=== PATIENT | female | born 1965 | race Caucasian/White ===

== ENCOUNTER 2017-06-21 12:00 | Day surgery (SDC) | payer BC ==
[~2017-06-21] VITALS: Ht 160 cm; Wt 62.6 kg
[~2017-06-21 12:00] MED LIST: AMBIEN5 MG PO; CYMBALTA60 MG PO; FLUTICASONE PRO16 GM NAS; IMITREX100 MG PO; NORCO 5-325 TA1 EACH PO; ROBAXIN-750750 MG PO
--- NOTE | 2017-06-21 14:19 | NUR ---
06/21/17 1419 Katy Velazquez REPORT FROM [facility].
--- NOTE | 2017-06-22 13:21 | OR ---
[facility] [address], [place] [address] Signed DATE OF OPERATION: 06/21/2017 SURGEON: Avelino Irby MD PREOPERATIVE DIAGNOSIS: Colon screening. POSTOPERATIVE DIAGNOSIS: Mild proctitis. PROCEDURE: Total colonoscopy to cecum with biopsy of rectum. ANESTHESIA: Intravenous sedation, propofol infusion. ANESTHESIOLOGIST: Elinor Richardson CRNA. INDICATION: This 51-year-old white woman, is a patient of Dr. John Ortiz here for colon screening. She has never had colonoscopy in the past. She is not currently having bleeding, diarrhea, or constipation. She understands the risks of bleeding, infection, perforation related to colonoscopy and wished to proceed. FINDINGS: The prep was adequate. Complete colonoscopy was undertaken to the cecum without question. There was mild proctitis, but no evidence of other abnormality, specifically no polyps, diverticula formation, colitis, or cancer. DESCRIPTION OF PROCEDURE: The patient was brought to the endoscopy suite and placed in lateral decubitus position and given intravenous sedation by the piano player with propofol infusional technique using full cardiopulmonary monitoring. Digital rectal examination was found to be normal. An Olympus video colonoscope was passed in the rectum and manipulated throughout the colon ultimately intubating the cecum. Irrigation was undertaken in the cecum and right colonic areas. The scope was then withdrawn from the cecum and examination throughout showed no sign of abnormality until the rectum, where there was mild inflammatory change, though not much and probably bowel prep related mostly. This area was biopsied. Retroflexed view was undertaken showing no other abnormality, specifically Electronically Signed By: AVELINO IRBY MD 06/22/17 1321 PATIENT NAME: JARRETT BRAVO OPERATIVE REPORT DATE OF : 65 PHYSICIAN: AVELINO IRBY MD REPORT #: [id number] REPORT IS CONFIDENTIAL AND NOT TO BE RELEASED WITHOUT AUTHORIZATION [facility] [address] [place] [address] [place], [place] [address] Signed no hemorrhoids. Scope was removed and the patient was taken to recovery room in good condition. Biopsy of the rectum was to affirm or refute pathologic proctitis. CONCLUDING DIAGNOSIS: Mild proctitis, probably bowel prep related. PLAN: Review pathology report. Repeat colonoscopy in 10 years, sooner if clinically indicated. Recommend high-fiber diet. MD STEVEN Brunson/SHRUTHIL /[id number] cc: John Ortiz MD Electronically Signed By: AVELINO IRBY MD 06/22/17 1321 PATIENT NAME: JARRETT BRAVO [facility] OPERATIVE REPORT DATE OF : 65 PHYSICIAN: AVELINO IRBY MD REPORT #: [id number] REPORT IS CONFIDENTIAL AND NOT TO BE RELEASED WITHOUT AUTHORIZATION
== END 2017-06-21 14:55 | disposition home or self-care (01) ==
LOC: OPS 12:00 → DS 13:15 → OPS 14:55
PROVIDERS: Surgery
PROC: 0DBP8ZX Excision of Rectum, Via Natural or Artificial Opening Endoscopic, Diagnostic (ICD-10-PCS; principal; 2017-06-21 13:15)
DX: Z12.11 Encounter for screening for malignant neoplasm of colon (principal); K62.89 Other specified diseases of anus and rectum; F32.9 Major depressive disorder, single episode, unspecified; G40.909 Epilepsy, unspecified, not intractable, without status epilepticus; Z88.8 Allergy status to other drugs, medicaments and biological substances; Z90.710 Acquired absence of both cervix and uterus; Z98.890 Other specified postprocedural states; Z79.899 Other long term (current) drug therapy
CPT/HCPCS: 00810; J2704